=== PATIENT | male | born 2000 | race African-American/Black ===

== ENCOUNTER 2023-01-21 16:56 | Outpatient (CLI) | payer OTHER ==
--- NOTE | 2023-01-22 14:06 | MRI Report ---
PROCEDURE: WRIST WO - LT INDICATIONS: PAIN IN LEFT WRIST TECHNIQUE: Noncontrast coronal proton density fast spin echo and T2 fast spin echo with fat saturation; coronal 3-D gradient echo, axial T1 spin echo and T2 fast spin echo with fat saturation, sagittal T1 spin ech o through the wrist. COMPARISON: None. FINDINGS: Image quality: Excellent. Bones and cartilage: The carpal bones are normally aligned. There is marrow edema involving througho ut the endometrium and ill-defined linear hypointense signal involving dorsal aspect of triquetrum co ncerning for nondisplaced triquetral fracture. No other fracture or dislocation. No evidence for avas cular necrosis. Overlying cartilage surfaces appear normal. Carpal ligaments: The hyperintense signal is seen within scapholunate ligament concerning for ligamen t sprain/low-grade partial thickness tear. The lunotriquetral ligament is intact. In the absence of i ntra-articular contrast, the extrinsic carpal ligaments are not well identified. On sagittal images, the pisohamate ligament appears intact. Triangular fibrocartilage complex: The triangular fibrocartilage appears intact. The adjacent menis andre homolog appears normal in the absence of intra-articular contrast. The extensor carpi ulnaris te ndon is thickened at the level of ulnar styloid and triquetrum. Tendons and soft tissues: The carpal tunnel structures appear normal, including the median nerve. T he ulnar nerve appears normal within Guyon's canal. Rest of the extensor tendon compartments demonstr ate normal morphology, without pathologic tendon sheath fluid. No soft tissue ganglion cysts. IMPRESSION: 1. Suggestion of nondisplaced fracture involving the triquetrum with marrow edema. No other fracture or dislocation. No evidence of avascular necrosis. 2. Suggestion of low-grade intrasubstance partial thickness tear involving scapholunate ligament. No full-thickness scapholunate ligament rupture. The lunotriquetral ligament is intact. 3. Triangular fibrocartilage complex is intact. Tendinosis involving the extensor carpi ulnaris tendo n at the level of ulnar styloid and triquetrum. 4. Rest of the extensor and flexor tendons are intact. Reviewed by: Victor Manuel Owen MD on 01/22/2023 2:04 PM PDT Approved by: Victor Manuel Owen MD on 01/22/2023 2:04 PM PDT Station ID: [id number]
== END 2023-01-21 16:57 | disposition home or self-care (01) ==
LOC: DI 16:56
PROVIDERS: ATTEND Family Medicine
DX: M67.932 Unspecified disorder of synovium and tendon, left forearm (principal)

== ENCOUNTER 2023-12-30 15:36 | Emergency (ER) | payer OTHER ==
--- NOTE | 2023-12-30 17:26 | XRAY Report ---
PROCEDURE: Chest 2V INDICATIONS: CHEST PAIN TECHNIQUE: 2 views of the chest were acquired. COMPARISON: None. FINDINGS: Surgical changes and devices: None. Lungs and pleura: No pleural effusions or pneumothorax. Lungs are clear. Mediastinum: Mediastinal contours appear normal. Heart size is normal. Bones and chest wall: No suspicious bony lesions. Overlying soft tissues appear unremarkable. IMPRESSION: No acute cardiopulmonary process. Reviewed by: Yoseph Mcintosh MD on 12/30/2023 5:25 PM PST Approved by: Yoseph Mcintosh MD on 12/30/2023 5:25 PM PST Station ID: [id number]
--- NOTE | 2023-12-30 18:07 | ED Physician Documentation ---
PD HPI CHEST PAIN - Stated complaint Stated Complaint: SHARP CHEST PX - Chief complaint Chief Complaint: Cardiac - Additional information Additional information: 23-year-old male presents emergency department for left chest pain. He says thi s started around this morning when he first woke up he felt like he was having a hard time taking a deep breath into his left chest. The pain is now radiating to his back and comes and goes. He says that he does not notice anything that makes it better it is worse with any deep inhalation. He is not on any hormones. He has not had any recent long travel and no decrease in regular activity lately. PD PAST MEDICAL HISTORY - Present Medications Home Medications: Ambulatory Orders Medication Instructions Recorded Confirmed No Known Home Medications 12/30/23 12/30/23 - Allergies Allergies/Adverse Reactions: Allergies Allergy/AdvReac Type Severity Reaction Status Date / Time No Known Drug Allergies Allergy Verified 12/30/23 15:54 - Social History Does the pt smoke?: No Smoking Status: Never smoker Does the pt drink ETOH?: No Does the pt have substance abuse?: No PD ED PE NORMAL - Vitals Vital signs reviewed: Yes - General General: Alert and oriented X 3, No acute distress, Well developed/nourished - HEENT HEENT: Atraumatic - Neck Neck: No bruit - Cardiac Cardiac: RRR, No murmur, No gallop, Strong equal pulses - Respiratory Respiratory: No respiratory distress, Clear bilaterally - Abdomen Abdomen: Normal bowel sounds, Soft - Derm Derm: Normal color, Warm and dry, No rash - Extremities Extremities: No deformity, No edema Results - Vitals Vitals: Vital Signs - 24 hr 12/30/23 12/30/23 12/30/23 15:48 16:00 19:25 Temperature 36.4 C L 36.4 C L Heart Rate 90 90 67 Respiratory 16 16 16 Rate Blood Pressure 135/78 H 135/78 H 126/68 O2 Saturation 99 99 100 Oxygen O2 Source Room air - EKG (time done) 1555 EKG releavant findings:: EKG personally interpreted by author of this note. Relevant findings are: Rate: Rate (enter#) (84) Rhythm: Sinus bradycardia [place]: Normal Intervals: Normal CT QRS: Normal Ischemia: Normal ST segments Computer interpretation: Agree with computer - Labs Labs: Laboratory Tests 12/30/23 18:17 Sodium 140 Potassium 3.9 Chloride 103 Carbon Dioxide 32 Anion Gap 5.0 L BUN 11 Creatinine 1.1 Estimated GFR (MDRD) 100 Glucose 97 Calcium 9.6 Troponin I High Sens 2.3 - Rads (name of study) Chest x-ray Relevant Findings:: Final report received, EMP independent interpretation of test, Other (Normal chest x-ray, no cardiopulmonary abnormalities.) PD Medical Decision Making - ED course ED course: Exam without evidence of volume overload so doubt heart failure. EKG without signs of active ischemia. Given the timing of pain to ER presentation, single troponin_ delta troponin_ was _ so doubt NSTEMI. Presentation not consistent with acute PE (PERC negative),pneumothorax (not visualized on chest xr), thoracic aortic dissection, pericarditis, tamponade, pneumonia (no infectious symptoms, clear chest xr), myocarditis (no recent illness, neg trop). HEART score:0 discharge patient home with PCP follow up. BMP was complete no electrolyte abnormalities, troponin is not elevated at 2.3. Departure - Departure Disposition: 01 Home, Self Care Clinical Impression: Chest pain of unknown etiology Instructions: ED Chest Pain Atypical Unkn Cause Comments: Thank you for trusting us with your care. We have completed labs as well as EKG and chest x-ray and everything has come back unremarkable. There is no further workup indicated at this time please call with your primary care provider to let them know about your ER visit for further discussion and evaluation. If your chest pain gets any worse or you are having any difficulty breathing please come back to the emergency department for further evaluation and workup. Forms: PCP List Discharge Date/Time: 12/30/23 19:32
[2023-12-30 18:35] LABS: CALCIUM 9.6 mg/dL (8.5-10.3); CREATININE 1.1 mg/dL (0.6-1.3); POTASSIUM 3.9 mmol/L (3.5-4.5)
[2023-12-30 19:01] LABS: TROPONIN I HIGH SENSITIVITY 2.3 ng/L (2.3-19.7)
[2023-12-30 19:36] VITALS: BP 126/68; O2SAT 100
== END 2023-12-30 19:32 | disposition home or self-care (01) ==
LOC: ED 15:36
DX: R07.9 Chest pain, unspecified (principal)
CPT/HCPCS: 36415; 80048; 84484; 93005; 99283; 99284